=== PATIENT | female | born 1985 | race Two or more races ===

== ENCOUNTER 2025-05-02 05:30 | Day surgery (SDC) | payer MEDICAID, SELFPAY ==
[2025-05-01 08:13] VITALS: BMI 41.8
[2025-05-01 10:35] LABS: Basophils # (Auto) 0.0 Thou/mm3 (0.0-0.2); Basophils % (Auto) 1 % (0-2.5); Eosinophils # (Auto) 0.2 Thou/mm3 (0.0-0.5); Eosinophils % (Auto) 3 % (0-10); Hematocrit 39.0 % (36.0-46.0); Hemoglobin 13.0 g/dL (12.0-16.0); Immature Granulocytes Auto 0.02 Thou/mm3 (0.00-0.00); Lymphocytes # (Auto) 1.9 Thou/mm3 (1.0-4.8); Lymphocytes % (Auto) 30 % (10-50); Mean Corpuscular HGB Conc 33.3 g/dl (31.0-37.0); Mean Corpuscular Hemoglobin 28.9 pg (25.0-35.0); Mean Corpuscular Volume 87 fL (80-100); Monocytes # (Auto) 0.5 Thou/mm3 (0.0-0.8); Monocytes % (Auto) 7 % (0-12); Neutrophils # (Auto) 3.8 Thou/mm3 (1.8-7.7); Neutrophils % (Auto) 59 % (37-80); Nucleated Red Blood Cell # 0.00 Thou/mm3 (0.00-0.00); Nucleated Red Blood Cell % 0 /100 WBC (0); Platelet Count 176 Thou/mm3 (140-440); RDW Standard Deviation 39.3 fL (36.4-46.3); Red Blood Count 4.50 Miln/mm3 (4.00-5.20); White Blood Count 6.5 Thou/mm3 (3.6-11.0)
[2025-05-01 10:44] LABS: Alanine Aminotransferase < 7 U/L (10-49); Albumin, Serum 4.4 gm/dL (3.5-5.0); Albumin/Globulin Ratio 1.8 (1.2-2.2); Alkaline Phosphatase 53 U/L (46-116); Anion Gap 6 (7-16); Aspartate Amino Transferase 16 U/L (0-34); BUN/Creatinine Ratio 7 Ratio (12-20); Bilirubin,Total 0.4 mg/dL (0.3-1.2); Blood Urea Nitrogen 5 mg/dL (9-23); Calcium 9.0 mg/dL (8.3-10.6); Calcium (Corrected) 9.0 mg/dL (8.5-10.1); Carbon Dioxide 28.5 mMol/L (20.0-31.0); Chloride 108 mMol/L (98-107); Creatinine (Component) 0.7 mg/dL (0.6-1.3); Estimated Creatinine Clearance 126.5 mL/min (>60); Globulin 2.4 gm/dL (2.3-3.5); Glucose 83 mg/dL (74-106); Osmolality,Calculated 279 (275-295); Potassium 3.9 mMol/L (3.4-5.1); Sodium 142 mMol/L (136-145); Total Protein 6.8 gm/dL (5.7-8.2); eGFR > 60 See Note
[2025-05-01 10:56] LABS: HCG,Qualitative Serum Negative
[2025-05-02 06:00] VITALS: BP 137/77; PULSE 57; RESP 18; TEMP 36.2; O2SAT 97; BMI 41.8
--- NOTE | 2025-05-02 07:15 | CHAP ---
Visited briefly with patient and prayed for upcoming procedure.
[2025-05-02 08:21] VITALS: BP 118/76; PULSE 73; RESP 18; TEMP 36.3; O2SAT 97
--- NOTE | 2025-05-02 08:21 | SUR.PHASEII ---
0821: Pt. wakes to name then drifts back to sleep, vitals stable, breathing unlabored, no complaint of pain or nausea, dressing to right foot CDI, no active bleed noted, cap refill to bilateral feet less than 3 seconds, report received from Annamaria ORELLANA and Елена ANDERSON.
--- NOTE | 2025-05-02 08:23 | PD.SUROPNT ---
Date of Procedure 05/02/25 Pre Op Diagnosis Right hallux ganglion cyst Post Op Diagnosis Same Procedure Right hallux soft tissue mass removal Findings expected Procedure Description Patient brought to the operating theater and placed on the operating table in a supine position. IV sedation was obtained and preoperative antibiotics were given. The right hallux was numbed using 10 cc of 0.5% Marcaine plain. The area scrubbed prepped and draped in the normal aseptic fashion. Attention then directed to the right hallux over the IP joint slightly laterally where a soft tissue mass was palpated, this area was incised with a curvilinear incision to avoid pedal nerves and to maximize skin exposure. After incision through the skin and subcu tissue cauterize all bleeders as noted, the mass was then visualized. This mass was noted to be far larger than previously expected, and went deep to the joint and likely also the tendon. The mass was carefully excised in toto down to its root which was then excised, cautery was then used to burn the root for the mass was taken from, area was flushed closed with 4-0 nylon and a compressive dressing was applied to encourage healing together of soft tissue and prevent recurrence of mass, although this is always possible. Adaptic Sudheer and Coban were used for the compression, and tourniquet was deflated at 22 minutes, brisk response to toe was noted and patient transferred to recovery with vascular status intact and vital signs stable. Anesthesia MAC and local Drains None Implants Implants comments: None Pathology / specimen Other Pathology comment: Right hallux mass sent Estimated Blood Loss 1 Condition Stable Disposition same day Surgeon Stewart Viramontes DPM Surgical Staff Operation Date: 05/02/25 07:30 Case Staff Anesthesiologist: Chet Pappas
[2025-05-02 08:26] VITALS: BP 124/81; PULSE 67; RESP 16; TEMP 36.3; O2SAT 98
[2025-05-02 08:31] VITALS: BP 115/78; PULSE 65; RESP 15; TEMP 36.3; O2SAT 99
[2025-05-02 08:36] VITALS: BP 124/86; PULSE 67; RESP 17; TEMP 36.3; O2SAT 98
[2025-05-02 08:51] VITALS: BP 131/84; PULSE 59; RESP 18; TEMP 36.3; O2SAT 99
--- NOTE | 2025-05-02 09:11 | SUR.PHASEII ---
0911: Pt. AAOx4, vitals stable, breathing unlabored, no complaint of pain or nausea, dressing to right foot CDI, no active bleed noted, pt. tolerated sips of water well, pt. ambulated to wheelchair with steady gait and no assist, no complications. Gave discharge instructions to the pt. and her ride using a paper sales representative, both verbalized understanding and had no further questions. Pt. left with all personal belongings.
== END 2025-05-02 09:11 | disposition home or self-care (01) ==
PROVIDERS: PCP Family Medicine; Referring Provider Podiatrist; Visit Provider Podiatrist
PROC: (CPT 28092; principal; 2025-05-02 07:30)
DX: M67.471 Ganglion, right ankle and foot (principal)
CPT/HCPCS: 28092; 36415; 80053; 84703; 85025; A4649; J0690; J2250; J2704; J3010; J3490